=== PATIENT | female | born 1970 | race Caucasian/White ===

== ENCOUNTER 2024-11-29 18:38 | Emergency (ER) | payer MEDICAID ==
[2024-11-29] MEDS: fentaNYL 100 MCG/2 ML SDV IVPUSH ONE (18:48)
[2024-11-29] MEDS: Ondansetron 4 MG/2 ML SDV IVPUSH ONE ×2 (18:48→20:30)
[2024-11-29] MEDS: Ondansetron 4 MG/2 ML SDV ONE (18:49)
[2024-11-29] MEDS: fentaNYL 100 MCG/2 ML SDV ONE (18:49)
[2024-11-29] MEDS: Ketamine 500 mg/10 ML MDV IVPUSH ONE (19:12)
[2024-11-29] MEDS: Midazolam 1 MG/ML 2 ML SDV IVPUSH ONE (19:12)
[2024-11-29] MEDS: Take Home: Acetaminophen/HYDROcodone 325-5 MG, 5 Tab Pack PO ONE (20:22)
[2024-11-29] MEDS: Ketorolac 30 MG/ML SDV IVPUSH ONE (20:22)
[2024-11-29] MEDS: HYDROmorphone 0.5 MG/0.5 ML Syringe IVPUSH ONE (20:23)
[2024-11-29 20:54] VITALS: BP 117/71; PULSE 70
== END 2024-11-29 20:52 | disposition home or self-care (01) ==
LOC: DL.ED 18:38
DX: S52.502A Unspecified fracture of the lower end of left radius, initial encounter for closed fracture (principal); Z79.899 Other long term (current) drug therapy; W19.XXXA Unspecified fall, initial encounter
CPT/HCPCS: 25605; 73100-LT; 96374; 96375; 96376; 99283-25; 99284; A9270-GY; J1171; J1885; J2250; J2405; J3010; J3490

== ENCOUNTER 2024-12-31 15:42 | Emergency (ER) | payer MEDICAID ==
[2024-12-31 17:27] VITALS: BP 140/99; PULSE 79
== END 2024-12-31 17:24 | disposition home or self-care (01) ==
LOC: DL.ED 15:42
DX: M25.532 Pain in left wrist (principal); Z79.899 Other long term (current) drug therapy; Z86.16 Personal history of COVID-19
CPT/HCPCS: 73110-LT; 99283